=== PATIENT | male | born 1955 | race Caucasian/White ===

== ENCOUNTER 2016-08-29 22:23 | Inpatient (IN) | payer BC, OTHER ==
[~2016-08-29] VITALS: Ht 177.8 cm; Wt 131.1 kg
[2016-08-29 22:34] VITALS: BP 142/95; PULSE 149; RESP 18; TEMP 96.8; O2SAT 96
[2016-08-29] MEDS ORDERED: DILTIAZEM HCL 25 MG/5 ML VIAL IVP ONE (23:15)
[2016-08-29] MEDS ORDERED: NACL 0.9% 1,000 ML IV ONE (23:15)
[2016-08-30] VITALS (12 sets, daily range): BP systolic 131–164; BP diastolic 67–98; PULSE 63–77; RESP 13–20; TEMP 97.3–98.2; O2SAT 94–98
[2016-08-30 00:08] LABS: HEMATOCRIT 46.8 % (36-54); HEMOGLOBIN 15.5 g/dL (14.0-18.0); MEAN CORPUSCULAR HEMOGLOBIN 32 pg (27-31); MEAN CORPUSCULAR HGB CONC 33 % (32-36); MEAN CORPUSCULAR VOLUME 97 fL (79.0-98.0); PLATELET COUNT (AUTO) 229 K/uL (130-430); RED BLOOD CELL COUNT(AUTO) 4.82 MIL/uL (4.2-6.2); RED CELL DISTRIBUTION WIDTH 12.7 % (9.0-15.0); WHITE BLOOD COUNT (AUTO) 8.5 K/uL (4.8-10.8)
[2016-08-30 00:12] LABS: CALCIUM 8.9 mg/dL (8.4-11.0); CREATININE 1.32 mg/dL (0.55-1.30)
[2016-08-30 00:17] LABS: ALBUMIN 3.9 g/dL (3.4-4.8); TOTAL BILIRUBIN 0.5 mg/dL (0.0-1.0); TOTAL PROTEIN, SERUM 7.2 g/dL (6.4-8.3)
[2016-08-30 00:28] LABS: NEUTROPHILS % (AUTO) 67.7 % (40.0-70.0)
[2016-08-30 00:29] LABS: BASOPHILS # (AUTO) 0.2 K/uL (0.0-0.2); BASOPHILS % (AUTO) 2.1 % (0.0-2.0); EOSINOPHILS # (AUTO) 0.2 K/uL (0.0-0.4); EOSINOPHILS % (AUTO) 2.1 % (0.0-4.0); LYMPHOCYTES # (AUTO) 1.5 K/uL (1.0-5.5); MONOCYTES # (AUTO) 0.9 K/uL (0.0-1.0); MONOCYTES % (AUTO) 10.1 % (1.7-9.3); NEUTROPHILS # (AUTO) 5.7 K/uL (1.8-7.7)
[2016-08-30] MEDS ORDERED: DILTIAZEM HCL 25 MG/5 ML VIAL IVP ONE ×2 (00:30→01:00)
[2016-08-30 00:32] LABS: INR 0.9 (0.80-1.20); PROTHROMBIN TIME 10.3 SECS (9.5-12.5)
[2016-08-30] MEDS ORDERED: DILTIAZEM HCL 125 MG in D5W 100 ML IV ONE ×2 (01:00→03:00)
[2016-08-30] MEDS ORDERED: DILTIAZEM HCL 125 MG/25 ML VIAL IV ONE (01:12)
[2016-08-30] MEDS ORDERED: ASPI-1063 PO (02:29)
[2016-08-30] MEDS ORDERED: METO25TA3 PO ×2 (02:29→10:02)
[2016-08-30] MEDS ORDERED: FLECAINIDE ACETATE 50 MG TABLET (TAMBOCOR) PO SCH (09:00)
[2016-08-30] MEDS ORDERED: METOPROLOL SUCCINATE 25 MG TAB.SR.24H (TOPROL XL) PO SCH (09:00)
[2016-08-30] MEDS ORDERED: FLEC50TA2 PO (10:00)
[2016-08-30] MEDS ORDERED: RIVA20TA PO (10:03)
[2016-08-30] MEDS ORDERED: RIVAROXABAN 20 MG TABLET PO SCH (18:00)
[2016-08-30] MEDS ORDERED: RIVAROXABAN 10 MG TABLET PO SCH (18:00)
== END 2016-08-30 18:09 | disposition home or self-care (01) | DRG 309 ==
LOC: SED 22:23 → STU 08-30 02:59 → SIC 08-30 03:05 → STU 08-30 12:34
PROVIDERS: ADMIT Internal Medicine Hospice and Palliative Medicine; ATTEND Internal Medicine Hospice and Palliative Medicine
DX: I48.91 Unspecified atrial fibrillation (principal); Z68.41 Body mass index [BMI] 40.0-44.9, adult; I10 Essential (primary) hypertension; E66.9 Obesity, unspecified; I48.92 Unspecified atrial flutter; E78.5 Hyperlipidemia, unspecified; G47.30 Sleep apnea, unspecified; Z90.49 Acquired absence of other specified parts of digestive tract
CPT/HCPCS: 36415; 71010; 80053; 83880; 84443-TC; 84484; 85025; 85610-TC; 85730-TC; 87081; 93005; 93306; 96374; 99285; J3490; J7030; J7060

== ENCOUNTER 2020-08-09 06:18 | Emergency (ER) | payer OTHER ==
[~2020-08-09] VITALS: Ht 177.8 cm; Wt 126.6 kg
[~2020-08-09 06:18] MED LIST: FLEC50TA2 PO; METO25TA3 PO; RIVA20TA PO
[2020-08-09 06:25] VITALS: BP_SYST 155
[2020-08-09] MEDS ORDERED: NACL 0.9% 1,000 ML IV ONE (06:45)
[2020-08-09] MEDS ORDERED: MECLIZINE HCL 25 MG TABLET (ANITVERT) PO ONE (06:45)
[2020-08-09 07:09] LABS: BASOPHILS # (AUTO) 0.1 K/uL (0.0-0.2); EOSINOPHILS # (AUTO) 0.7 K/uL (0.0-0.4); EOSINOPHILS % (AUTO) 9.6 % (0.0-4.0); HEMATOCRIT 44.8 % (36-54); HEMOGLOBIN 15.6 g/dL (14.0-18.0); LYMPHOCYTES # (AUTO) 1.7 K/uL (1.0-5.5); LYMPHOCYTES % (AUTO) 23.2 % (20.5-51.5); MEAN CORPUSCULAR HEMOGLOBIN 33 pg (27-31); MEAN CORPUSCULAR HGB CONC 35 % (32-36); MEAN CORPUSCULAR VOLUME 95 fL (79.0-98.0); MONOCYTES # (AUTO) 0.8 K/uL (0.0-1.0); MONOCYTES % (AUTO) 10.9 % (1.7-9.3); NEUTROPHILS # (AUTO) 4.1 K/uL (1.8-7.7); NEUTROPHILS % (AUTO) 55.3 % (40.0-70.0); PLATELET COUNT (AUTO) 191 K/uL (130-430); RED BLOOD CELL COUNT(AUTO) 4.72 MIL/uL (4.2-6.2); RED CELL DISTRIBUTION WIDTH 13.4 % (9.0-15.0); WHITE BLOOD COUNT (AUTO) 7.4 K/uL (4.8-10.8)
[2020-08-09 07:18] LABS: ANION GAP 11 (5-15); CALCIUM 8.1 mg/dL (8.4-11.0); CHLORIDE 101 mmol/L (98-107); CREATININE 1.18 mg/dL (0.55-1.30); GLUCOSE 279 mg/dL (70-99); SODIUM SERUM 135 mmol/L (136-145); UREA NITROGEN, BLOOD 18 mg/dL (8-21)
[2020-08-09 07:19] LABS: GFR AFRICAN AMERICAN 80 mL/min (>90)
[2020-08-09 07:23] LABS: INR 1.1 (0.80-1.20); PROTHROMBIN TIME 11.5 SECS (9.5-12.5)
[2020-08-09 07:25] LABS: ALANINE AMINOTRANSFERASE 40 U/L (12-78); ALBUMIN 3.3 g/dL (3.4-4.8); ALCOHOL, BLOOD < 3 mg/dL (<10); ASPARTATE AMINOTRANSFERASE 19 U/L (10-37); TOTAL BILIRUBIN 0.6 mg/dL (0.0-1.0)
[2020-08-09 08:26] LABS: BILIRUBIN,URINE NEGATIVE (NEGATIVE); CLARITY/URINE CLEAR (CLEAR); COLOR,URINE YELLOW (YELLOW); GLUCOSE,URINE 3+ (NEGATIVE); KETONES,URINE NEGATIVE (NEGATIVE); LEUKOCYTE ESTERASE ,URINE NEGATIVE (NEGATIVE); NITRITE, URINE NEGATIVE (NEGATIVE); PROTEIN URINE NEGATIVE (NEGATIVE); UROBILINOGEN,URINE 0.2 (0.2-1.0)
[2020-08-09 08:30] LABS: BLOOD, URINE TRACE (NEGATIVE)
[2020-08-09] MEDS ORDERED: GLUXR500 PO (08:30)
[2020-08-09 08:39] LABS: BARBITURATE, URINE NEGATIVE (NEG <=200); BENZODIAZEPINE, URINE NEGATIVE (NEG <=150); CANNABINOID, URINE NEGATIVE (NEG <=50); COCAINE, URINE NEGATIVE (NEG <=150); METHAMPHETAMINES SCREEN,URINE NEGATIVE (NEG <=500); OPIATE, URINE NEGATIVE (NEG <=100); PHENCYCLIDINE SCREEN,URINE NEGATIVE (NEG <=25); UR TRICYCLIC ANTIDEPRESSANTS NEGATIVE (NEG <=300); URINE AMPHETAMINE NEGATIVE (NEG <=500); URINE METHADONE NEGATIVE (NEG <=200); URINE OXYCODONE SCREEN NEGATIVE (NEG <=100); URINE PROPOXYPHENE SCREEN NEGATIVE (NEG <=300)
[2020-08-09 08:40] LABS: BACTERIA,URINE None Seen /HPF (None Seen); WBC,URINE 0-3 /HPF (0-3)
[2020-08-09 08:47] VITALS: BP_SYST 152
== END 2020-08-09 08:46 | disposition home or self-care (01) ==
LOC: SED 06:18
DX: E11.9 Type 2 diabetes mellitus without complications (principal); I10 Essential (primary) hypertension; Z79.899 Other long term (current) drug therapy
CPT/HCPCS: 36415; 70450; 76376; 80053; 80307; 81000; 82550; 82962; 84484; 85025; 85610; 85730; 93005; 96360; 99285; G0482; J7030; J8597

== ENCOUNTER 2022-01-25 11:54 | Emergency (ER) | payer OTHER ==
[~2022-01-25] VITALS: Ht 177.8 cm; Wt 123.4 kg
[~2022-01-25 11:54] MED LIST changes: +GLUXR500 PO
[2022-01-25 12:19] VITALS: BP_SYST 159
--- NOTE | 2022-01-25 15:00 | NUR ---
ER DR. LUCAS EXAMINING PT
--- NOTE | 2022-01-25 16:05 | NUR ---
Patient to ER bed 4 to gown for evaluation. Side rails up. Report given to DANIE
[2022-01-25] MEDS ORDERED: NAPR-1172 PO (16:59)
[2022-01-25 17:04] VITALS: BP_SYST 159
--- NOTE | 2022-01-25 17:05 | NUR ---
Patient given written and verbal discharge instructions and verbalizes understanding. ER MD discussed with patient the results and treatment provided. Patient in stable condition. ID arm band removed. Rx of NAPROXEN given. Patient educated on pain management and to follow up with PMD. Pain Scale 0/10. Opportunity for questions provided and answered. Medication side effect fact sheet provided.
== END 2022-01-25 17:05 | disposition home or self-care (01) ==
LOC: SED 11:54
DX: M43.6 Torticollis (principal); M50.33 Other cervical disc degeneration, cervicothoracic region; R51.9 Headache, unspecified; I10 Essential (primary) hypertension; Z79.899 Other long term (current) drug therapy
CPT/HCPCS: 70450-TC; 72125-TC; 76376; 99284

== ENCOUNTER 2022-03-04 05:00 | Day surgery (SDC) | payer OTHER ==
[~2022-03-04] VITALS: Ht 177.8 cm; Wt 123.8 kg
[~2022-03-04 05:00] MED LIST changes: +NAPR-1172 PO
[2022-03-04] MEDS ORDERED: SIMETHICONE 40 MG/0.6 ML ML ONE (07:16)
[2022-03-04] MEDS ORDERED: fentaNYL CITRATE/PF 100 MCG/2 ML AMP ONE (07:17)
[2022-03-04] MEDS ORDERED: MIDAZOLAM HCL 5 MG/5 ML VIAL ONE ×2 (07:17→08:09)
[2022-03-04 12:55] VITALS: BP_SYST 171
== END 2022-03-04 09:30 | disposition home or self-care (01) ==
LOC: SDS 05:00 → SMU 05:00 → SDS 09:30
PROVIDERS: ATTEND Internal Medicine
DX: Z12.11 Encounter for screening for malignant neoplasm of colon (principal); D12.2 Benign neoplasm of ascending colon; D12.4 Benign neoplasm of descending colon; K29.50 Unspecified chronic gastritis without bleeding; B96.81 Helicobacter pylori [H. pylori] as the cause of diseases classified elsewhere; K57.30 Diverticulosis of large intestine without perforation or abscess without bleeding; K64.8 Other hemorrhoids; Z86.010 Personal history of colon polyps; I10 Essential (primary) hypertension; Z90.49 Acquired absence of other specified parts of digestive tract; Z87.891 Personal history of nicotine dependence; Z85.828 Personal history of other malignant neoplasm of skin; Z20.822 Contact with and (suspected) exposure to COVID-19
CPT/HCPCS: 45385; 43239; 87426; 87081; 82962; 36415; 88305; 88312; 88313; 99152; 99153; G0378; J2250; J3010

== ENCOUNTER 2022-05-07 14:42 | Emergency (ER) | payer OTHER ==
[~2022-05-07] VITALS: Ht 180.3 cm; Wt 122.5 kg
[2022-05-07 15:19] VITALS: BP_SYST 152
--- NOTE | 2022-05-07 15:22 | NUR ---
Patient to ER bed H1 to gown for evaluation. Side rails up. Report given to MINGO PIERRE.
--- NOTE | 2022-05-07 15:42 | NUR ---
PT CAME TO ED BYSELF TO SEE IF HE HAS COVID OR THE FLU. PT C/O PAIN IN STOMACH FROM COUGHING. PT HAS A PERSISTENT NON PRODUCTIVE COUGHT. VSS RESPIRATIONS EVEN UNLABORED AND NAD. WILL CONT TO MONITOR.
--- NOTE | 2022-05-07 15:48 | NUR ---
PT PRESENTS TO ED TO RULE OUT COVID OR FLU, PAIN IN ABD FROM COUGHING. VSS, NAD EVEN AND UNLABORED RESPIRATIONS WILL CONT TO MONITOR.
[2022-05-07] MEDS ORDERED: NIRM1TAB5 PO (16:25)
--- NOTE | 2022-05-07 16:39 | NUR ---
Patient given written and verbal discharge instructions and verbalizes understanding. ER MD discussed with patient the results and treatment provided. Patient in stable condition. ID arm band removed. Rx of PAXLOVID given. Patient educated on pain management and to follow up with PMD. Opportunity for questions provided and answered. Medication side effect fact sheet provided.
== END 2022-05-07 16:39 | disposition home or self-care (01) ==
LOC: SED 14:42
DX: U07.1 COVID-19 (principal); J06.9 Acute upper respiratory infection, unspecified; R05.9 Cough, unspecified; R50.9 Fever, unspecified; I10 Essential (primary) hypertension; Z79.899 Other long term (current) drug therapy
CPT/HCPCS: 36415; 99283

== ENCOUNTER 2023-02-24 10:59 | Outpatient (CLI) | payer OTHER ==
[~2023-02-24 10:59] MED LIST changes: +NIRM1TAB5 PO
== END 2023-02-24 19:04 | disposition home or self-care (01) ==
LOC: SUS 10:59
PROVIDERS: ATTEND Internal Medicine
DX: N40.0 Benign prostatic hyperplasia without lower urinary tract symptoms (principal); R35.0 Frequency of micturition; R39.198 Other difficulties with micturition
CPT/HCPCS: 76770

== ENCOUNTER 2023-06-06 07:40 | Outpatient (CLI) | payer OTHER | END 2023-06-06 16:01 | disposition home or self-care (01) | LOC: SUS 07:40 | PROVIDERS: ATTEND Internal Medicine | DX: Z13.6 Encounter for screening for cardiovascular disorders (principal); Z87.891 Personal history of nicotine dependence | CPT/HCPCS: 93978 ==

== ENCOUNTER 2023-09-05 15:01 | Emergency (ER) | payer OTHER ==
[~2023-09-05] VITALS: Ht 182.9 cm; Wt 97.5 kg
[2023-09-05 15:05] VITALS: BP_SYST 135; PULSE 88; RESP 20; TEMP 98.9; O2SAT 97
== END 2023-09-05 15:58 | disposition home or self-care (01) ==
LOC: SED 15:01
DX: B34.9 Viral infection, unspecified (principal); I10 Essential (primary) hypertension; Z79.899 Other long term (current) drug therapy
CPT/HCPCS: 99281